=== PATIENT | male | born 2000 | race Caucasian/White ===

== ENCOUNTER 2022-01-31 08:40 | Emergency (ER) | payer SELFPAY ==
[~2022-01-31] VITALS: Ht 182.9 cm; Wt 68.2 kg
[~2022-01-31 08:40] MED LIST: AMOX-100 PO; XYL25J TOP
[2022-01-31 09:01] VITALS: BP 117/78
== END 2022-01-31 10:21 | disposition home or self-care (01) ==
LOC: ER 08:41
DX: R05.9 Cough, unspecified (principal); R09.81 Nasal congestion
CPT/HCPCS: 99281

== ENCOUNTER 2022-05-05 07:53 | Emergency (ER) | payer SELFPAY ==
[~2022-05-05] VITALS: Ht 188 cm; Wt 75.9 kg
[~2022-05-05 07:53] MED LIST changes: -AMOX-100 PO
[2022-05-05 08:20] VITALS: BP 109/66
== END 2022-05-05 11:06 | disposition left against medical advice (07) ==
LOC: ER 07:53
DX: M54.2 Cervicalgia (principal); Z53.21 Procedure and treatment not carried out due to patient leaving prior to being seen by health care provider
CPT/HCPCS: 99281